=== PATIENT | male | born 1985 | race Caucasian/White ===

== ENCOUNTER 2017-03-08 10:04 | Emergency (ER) | payer OTHER ==
[~2017-03-08] VITALS: Ht 180.3 cm; Wt 95.5 kg
[~2017-03-08 10:04] MED LIST: BACT800T5 PO; CEPH500C3 PO; CLIN150 PO; IBUP800T23 PO
[2017-03-08 10:08] VITALS: BP 130/87; PULSE 68; RESP 16; TEMP 97.7; O2SAT 99
--- NOTE | 2017-03-08 10:19 | PD ---
HPI . left upper and lower tooth pain x 2 days Chief Complaint: Oral / Dental Pain or Problem Time Seen by Provider: 10:19 Travel History International Travel<30 days: No Contact w/Intl Traveler<30days: No Traveled to known affect area: No History of Present Illness HPI 31-year-old male here with complaints of left upper and lower tooth pain for 2 days. Patient reports that he has had history of oral abscess in the past and was given incorrect diagnosis and ended up with sepsis. He is here requesting antibiotics for possible infection in his mouth. He says that he is in the process of trying to establish with the [place] clinic for further treatment from a dentist. He does admit to some pain in the left upper and lower corners of his mouth. He says his face was swollen but went down with the ibuprofen he is taking. He tells me ibuprofen and tylenol are controlling his pain. He denies any fever or chills. PFSH Past Medical History Arthritis: Yes Diminished Hearing: No Social History Alcohol Use: No Tobacco Use: Yes (1 ppd) Substance Use: No Allergies-Medications (Allergen,Severity, Reaction): Coded Allergies: Codeine (Verified Adverse Reaction, Mild, nausea, 03/08/17) Reported Meds & Prescriptions Reported Meds & Active Scripts Active Ibuprofen 800 Mg Tab 800 Mg PO TID Augmentin (Amoxicillin-Clavulanate) 875-125 mg Tab 875 Mg PO BID not for use in CrCl <30 ml/min. Reported Motrin Ib (Ibuprofen) 200 Mg Tab 400 Mg PO Q4H PRN Review of Systems General / Constitutional: No: Fever Eyes: No: Visual changes HENT: Positive: Dental Difficulties, No: Headaches Cardiovascular: No: Chest Pain or Discomfort Respiratory: No: Shortness of Breath Gastrointestinal: No: Abdominal Pain Genitourinary: No: Dysuria Musculoskeletal: No: Pain Skin: No Rash Neurologic: No: Weakness Psychiatric: No: Depression Endocrine: No: Polydipsia Hematologic/Lymphatic: No: Easy Bruising Physical Exam Narrative GENERAL: AAO x 3, no acute distress, Well-nourished, well-developed patient. SKIN: Warm and dry. No visible rashes or bruising. HEAD: Normocephalic and atraumatic. EYES: No scleral icterus. No injection or drainage. ENT: No nasal drainage noted. Mucous membranes pink. Airway patent. Posterior pharynx normal #16 without any evidence of infection or abnormality, #17, slightly swollen gums without any definitive fluid collection or abscess formation NECK: Supple, trachea midline. No JVD. No lymphadenopathy CARDIOVASCULAR: Regular rate and rhythm without murmurs, gallops, or rubs. RESPIRATORY: Breath sounds equal bilaterally. No accessory muscle use. No rhonchi or rales. GASTROINTESTINAL: Visual inspection normal EXTREMITIES: No cyanosis or edema. BACK: Nontender without obvious deformity. No CVA tenderness. PSYCH: AAO x 3, normal affect. Data Data Last Documented VS Vital Signs Date Time Temp Pulse Resp B/P Pulse Ox O2 Delivery O2 Flow Rate FiO2 03/08/17 10:08 97.7 68 16 130/87 99 MDM Medical Decision Making Medical Screen Exam Complete: Yes Emergency Medical Condition: Yes Medical Record Reviewed: Yes Differential Diagnosis Dental infection, less likely oral abscess, dentalgia Narrative Course 31-year-old male here with complaints of left upper and lower tooth pain for 2 days. Patient reports that he has had history of oral abscess in the past and was given incorrect diagnosis and ended up with sepsis. He is here requesting antibiotics for possible infection in his mouth. He says that he is in the process of trying to establish with the [place] clinic for further treatment from a dentist. He does admit to some pain in the left upper and lower corners of his mouth. He says his face was swollen but went down with the ibuprofen he is taking. He tells me ibuprofen and tylenol are controlling his pain. He denies any fever or chills. Patient seen and examined. He does appear to have the start of a possible abscess on #17. I will go ahead and start him on Augmentin. I've recommend follow-up with a dentist as soon as possible. He can continue to use Tylenol and ibuprofen as needed for pain. Patient verbalized understanding of instructions, questions were answered, and thanked me for their care. I advised them if their condition worsens, please return to the nearest emergency room for further care. Diagnosis Primary Impression: Dental infection Additional Impression: Dentalgia Patient Instructions: General Instructions Additional Instructions: Please see a dentist in the next 3-5 days. Please return to emergency department if your symptoms return or worsen. Follow up with your primary care provider. Take medications as prescribed. Med/Other Pt SpecificInfo: Prescription(s) given Scripts Ibuprofen [id number] Mg PO TID #21 TAB Prov:Feng Torres MD 03/08/17 Amoxicillin-Clavulanate (Augmentin)875-125 mg [id number] Mg PO BID #20 TAB not for use in CrCl <30 ml/min. Prov:Feng Torres MD 03/08/17 Disposition: 01 DISCHARGE HOME Condition: Stable Aparna Kohler March 08, 2017 10:19
[2017-03-08] MEDS ORDERED: AUGM875T PO (10:27)
[2017-03-08] MEDS ORDERED: MOTR200T4 PO (10:27)
[2017-03-08] MEDS ORDERED: IBUP800T23 PO (10:27)
== END 2017-03-08 11:14 | disposition home or self-care (01) ==
LOC: NEPK 10:04
DX: K04.7 Periapical abscess without sinus (principal); F17.200 Nicotine dependence, unspecified, uncomplicated
CPT/HCPCS: 99282